=== PATIENT | male | born 1965 | race Hispanic/Latino ===

== ENCOUNTER 2019-08-03 07:42 | Emergency (ER) | payer OTHER, BC, SELFPAY ==
--- NOTE | ~2019-08-03 | CT_ITS ---
EXAMINATION: CT abdomen pelvis wo con EXAM DATE: 08/03/2019 08:59 INDICATION: Left flank pain, mid abdominal pain. TECHNIQUE: Spiral CT of the abdomen and pelvis was performed without contrast. Axial, coronal and sag ittal images were reviewed. The dose-length product (DLP) for this examination was 777.54 mGy-cm. T he exposure was tailored according to patient size (auto mA exposure control), and iterative reconstr uction (ASIR) was used as additional dose reduction technique. There is no prior study for compariso n. FINDINGS: There is no nephrolithiasis or hydronephrosis. The prostate is unremarkable. The bladder is unremarkable. The liver, spleen, adrenal glands and pancreas are unremarkable. Gallbladder is u nremarkable. No biliary obstruction. There is no retroperitoneal or pelvic lymphadenopathy. Small right inguinal fat-containing hernia. Small umbilical fat-containing hernia. The appendix is normal. The stomach and small bowel are unremarkable. Extensive colonic diverticulo sis. There is probable mild inflammation along the sigmoid colon, probably acute uncomplicated divert iculitis. No free intraperitoneal gas. The heart is normal in size. There are no pericardial or pleural effusions. The lung bases are unremarkable. There are no osteoblastic or osteolytic lesions identified. IMPRESSION: 1. Probable mild acute uncomplicated sigmoid diverticulitis. 2. No nephrolithiasis or hydronephrosis. 3. Small fat-containing hernias. Reviewed, dictated and finalized at location A.
[2019-08-03 07:50] VITALS: BP 147/101; PULSE 63; RESP 14; TEMP 36.7; O2SAT 98
--- NOTE | 2019-08-03 08:14 | ED.ABDPAIN ---
HPI - Abdominal Pain General Chief Complaint: Abdominal Pain Stated Complaint: back pain Time Seen by Provider: 08/03/19 08:15 Source: patient Mode of arrival: ambulatory Limitations: no limitations History of Present Illness HPI narrative: A 54 y/o male presents to the ED with c/o diffuse ABD pain and lower back pain. Pt states the ABD pain began on Tuesday (3 days ago) followed by the back pain on Tuesday (2 days ago). Pt took Tylenol last night with no relief. Pt rates his current pain as an 8/10 in severity. He denies N/V/D, a fever, constipation, urinary frequency, hematuria, and dysuria. Onset (ago): day(s) (3) Pain scale (0-10): 8 Relieving factors: nothing Related Data Home Medications Medication Instructions Recorded Confirmed metformin 500 mg tablet 500 mg PO DAILY 04/04/19 pravastatin 40 mg tablet 40 mg PO DAILY 04/04/19 Allergies Allergy/AdvReac Type Severity Reaction Status Date / Time No Known Allergies Allergy Verified 08/03/19 08:00 Review of Systems Review of Systems: All systems reviewed & are unremarkable except as noted in HPI and below Constitutional: Constitutional: Denies fever(s) Gastrointestinal: Gastrointestinal: Reports abdominal pain (diffuse), Denies constipation, Denies diarrhea, Denies nausea and Denies vomiting Genitourinary: Genitourinary: Denies hematuria, Denies dysuria and Denies urinary frequency Musculoskeletal: Musculoskeletal: Reports back pain (lower) [facility] Past Medical History Medical History Arm fracture Diabetes HLD (hyperlipidemia) Surgical History Surgical History History of tonsillectomy Family History Family History Other Diabetes mellitus Social History Social History Smoking status: Smoker, status unknown Alcohol intake: current Comments No PCP on file. Exam Const: General: healthy appearing, no acute distress and alert Orientation/consciousness: patient oriented x3 HENMT: Head: normal to inspection Neck: Neck: normal visual inspection and no lymphadenopathy Chest: Chest palpation & inspection: no tenderness Resp: Effort & Inspection: normal respiratory effort Auscultation: clear to auscultation bilaterally, no rales, no rhonchi and no wheezes Cardio: Jugular venous distension: no JVD Rate: regular rate Rhythm: regular rhythm Heart sounds: no murmurs GI: GI Palp: Yes Soft to palpation and Yes Tenderness to palpation present (GI) (LLQ) : General: Yes no CVA tenderness Skin: General skin exam: normal color Neuro: General: patient oriented x3 and moves all extremities Speech: normal speech Extrem: General: no edema Psych: Appearance: well kempt Affect: normal affect Course Vital Signs Vital signs: Vital Signs Temperature 36.7 C 08/03/19 07:50 Pulse Rate 63 08/03/19 07:50 Respiratory Rate 14 08/03/19 07:50 Blood Pressure 147/101 H 08/03/19 07:50 Pulse Oximetry 98 08/03/19 07:50 Temperature 36.7 C 08/03/19 07:50 Pulse Rate 63 08/03/19 07:50 Respiratory Rate 14 08/03/19 07:50 Blood Pressure 147/101 H 08/03/19 07:50 Pulse Oximetry 98 08/03/19 07:50 MDM - Abdominal Pain Differential Diagnosis Differential diagnosis: Likely calculus of kidney, constipation and diverticulitis Lab Data Result diagrams: 08/03/19 09:07 08/03/19 09:07 Labs: Lab Results 08/03/19 08/03/19 08/03/19 Range/Units 09:07 09:07 09:55 WBC 7.5 (4.5-10.0) K/mm3 RBC 5.41 (4.6-6.20) M/mm3 Hgb 15.7 (14.0-18.0) g/dL Hct 46.6 (42.0-52.0) % MCV 86.1 (80-100) fl MCH 29.0 (26-34) pg MCHC 33.7 (32-36) g/dl RDW 13.1 (11.5-14.5) % Plt Count 252 (150-375) k/mm3 MPV 9.8 (7.4-10.4) fl Immature Gran % (Auto) 0.4 (0-0.5) % Neut
[2019-08-03 09:14] LABS: Basophils Percent Auto 0.3 % (0.2-1.2); Eosinophils Absolute Auto 0.1 K/mm3 (0-0.3); Eosinophils Percent Auto 0.7 % (0-4.4); Hematocrit 46.6 % (42.0-52.0); Hemoglobin 15.7 g/dL (14.0-18.0); Immature Granulocyte Absolute 0.03 K/mm3 (0.00-0.031); Immature Granulocyte Percent A 0.4 % (0-0.5); Lymphocytes Absolute Auto 1.72 K/mm3 (0.9-3.2); Lymphocytes Percent Auto 23.1 % (18.3-44.2); Mean Corpuscular HGB Conc 33.7 g/dl (32-36); Mean Corpuscular Volume 86.1 fl (80-100); Mean Platelet Volume 9.8 fl (7.4-10.4); Monocytes Absolute Auto 0.8 K/mm3 (0.1-0.6); Monocytes Percent Auto 10.7 % (2.6-8.5); Neutrophils Absolute Auto 4.8 K/mm3 (1.3-6.7); Neutrophils Percent Auto 64.8 % (45.5-73.1); Platelet Count Result 252 k/mm3 (150-375); Red Blood Count 5.41 M/mm3 (4.6-6.20); Red Cell Distribution Width 13.1 % (11.5-14.5); White Blood Count 7.5 K/mm3 (4.5-10.0)
[2019-08-03 09:28] LABS: Alanine Aminotransferase 18 U/L (4-50); Albumin Level 3.9 g/dL (3.5-5.1); Alkaline Phosphatase 47 U/L (38-126); Aspartate Amino Transferase 20 U/L (17-59); Bilirubin,Total 0.5 mg/dL (0.2-1.3); Blood Urea Nitrogen 9 mg/dL (9-20); Calcium 8.4 mg/dL (8.4-10.2); Carbon Dioxide 26 mmol/L (22-30); Chloride 102 mmol/L (98-107); Estimated CRCL calculation 113 ml/min; Estimated Glomerular Filt Rate > 60; Glucose 127 mg/dL (75-110); Potassium 3.5 mmol/L (3.4-5.0); Sodium 133 mmol/L (137-145)
[2019-08-03 10:04] LABS: Add Urine Microscopic? NO; Appearance Urine Clear (Clear); Bilirubin Urine Negative (Negative); Blood Urine Negative (Negative); Color Urine Yellow (Yellow); Glucose Urine UA Negative (Negative); Ketones Urine Negative (Negative); Leukocyte Esterase Ur Negative LEU/UL (Negative); Nitrate Urine Negative (Negative); Protein Urine Negative (Negative); Specific Grav Ur 1.019 (1.001-1.035); Urobilinogen Urine Negative mg/dL (<2.0)
[2019-08-03] MEDS: metroNIDAZOLE 250 MG TABLET 500 MG PO (10:15)
[2019-08-03] MEDS: CIPROFLOXACIN 500 MG TAB PO (10:15)
[2019-08-03 11:15] VITALS: BP 141/90; PULSE 56; RESP 16; O2SAT 99
== END 2019-08-03 11:17 | disposition home or self-care (01) ==
PROVIDERS: Emergency Provider Emergency Medicine; PCP Family Medicine
DX: K57.32 Diverticulitis of large intestine without perforation or abscess without bleeding (principal); E11.9 Type 2 diabetes mellitus without complications; E78.5 Hyperlipidemia, unspecified; Z79.84 Long term (current) use of oral hypoglycemic drugs; K40.90 Unilateral inguinal hernia, without obstruction or gangrene, not specified as recurrent; K42.9 Umbilical hernia without obstruction or gangrene
CPT/HCPCS: 36415; 74176; 80053; 81003; 85025; 99284; A9270

== ENCOUNTER 2019-08-06 00:53 | Emergency (ER) | payer BC, SELFPAY ==
--- NOTE | ~2019-08-06 | CT_ITS ---
EXAMINATION: CT abdomen pelvis w con INDICATION: Left lower abdominal pain TECHNIQUE: Computed tomographic images of the abdomen and pelvis were obtained after the administrati on of 100 cc of Omnipaque 350 intravenous contrast. The dose-length product (DLP) was 776.09 mGy-cm. Automated exposure control and iterative reconstruction technique were employed. COMPARISON: 08/03/2019 FINDINGS: Minimal dependent atelectasis is present in the lung bases. The heart size is normal. The l iver, spleen, pancreas, gallbladder, and adrenal glands are normal. The kidneys are unremarkable. No pathologically enlarged abdominal or pelvic lymph nodes are identified. There is no free intraperiton eal gas or evidence of bowel obstruction. Colonic diverticulosis is again noted. Again seen is subtle fat stranding near the sigmoid colon which is stable. There is a fat-containing right inguinal herni a. The appendix is normal. A moderate volume of colonic stool is present. There is mild lumbar spond ylosis. A tiny fat-containing umbilical hernia is noted. IMPRESSION: 1. Stable findings suggestive of mild, uncomplicated sigmoid diverticulitis. Reviewed, dictated and finalized at location B.
[2019-08-06 00:58] VITALS: BP 150/111; PULSE 75; RESP 16; TEMP 36.6; O2SAT 100
--- NOTE | 2019-08-06 01:10 | ED.ABDPAIN ---
HPI - Abdominal Pain General Chief Complaint: Abdominal Pain Stated Complaint: flank pain Time Seen by Provider: 08/06/19 01:07 Source: patient and RN notes reviewed Mode of arrival: other Limitations: no limitations History of Present Illness HPI narrative: Pt is a 54 y/o male who presents to the ED with c/o intermittent flank pain that began Tuesday (07/31/19) night. Pt denies any aggravating factors. He also denies taking any pain medication for his sx. Pt was dx with diverticulitis and was prescribed Cipro and Flagyl. He has presented to ER because he continues to have severe pain while on antibiotics. 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 Pt also reports difficulty sleeping, but denies N/V/D, urinary hesitancy, urinary retention, numbness, tingling, and any recent back injury. MD elicited complaint: flank pain Onset (ago): day(s) (6) Pain Consistency: intermittent Location: L flank Exacerbating factors: nothing Relieving factors: nothing Associated symptoms: other (difficulty sleeping) Related Data Home Medications Medication Instructions Recorded Confirmed metformin 500 mg tablet 500 mg PO DAILY 04/04/19 pravastatin 40 mg tablet 40 mg PO DAILY 04/04/19 Allergies Allergy/AdvReac Type Severity Reaction Status Date / Time No Known Allergies Allergy Verified 08/03/19 08:00 Review of Systems Review of Systems: All systems reviewed & are unremarkable except as noted in HPI and below Constitutional: Constitutional: Reports difficulty sleeping Gastrointestinal: Gastrointestinal: Denies diarrhea, Denies nausea and Denies vomiting Genitourinary: Genitourinary: Reports flank pain (left), Denies urinary hesitancy and Denies other (urinary retention) Neurologic: Denies numbness and Denies tingling PMFSH Social History Social History (Updated 08/06/19 @ 01:53 by Lorrie Gomes) Smoking packs per day: 0.25 Smoking cigarettes per day: 5.0 Smoking status: Current every day smoker Tobacco type: cigarettes Alcohol intake: current Exam Narrative: Exam Narrative: GENERAL: Well-appearing, well-nourished, and in no acute distress. HEAD: Normocephalic, atraumatic EYES: PERRLA and EOMI, conjunctiva clear without discharge THROAT:Mucous membranes moist, NECK: Supple, without lymphadenopathy or mass RESPIRATORY: No respiratory distress, Airway patent, Respirations non-labored, Clear to auscultation without rales, rhonchi or wheeze HEART: Regular rate and rhythm. No murmur heard. Normal peripheral pulses. ABDOMEN: Soft, LLQ tenderness, nondistended, normal active bowel sounds. No masses. No rebound or guarding, No organomegaly. EXTREMITIES: No edema, normal strength with full range of motion. SKIN: Warm, dry, normal color without rash NEURO: Alert and oriented x3. CN 2-12 grossly intact. No focal deficits. PSYCH: Normal mood and affect. Course Reevaluation(s) Reevaluation #1: Patient states his pain has resolved. I Discussed that he will need to continue taking antibiotics and he will need to take tylenol, ibuprofen for pain. I also discussed that he will need to take stool softeners. Date: 08/06/19 Time: 03:00 Vital Signs Vital signs: Vital Signs Temperature 97.9 F 08/06/19 00:58 Pulse Rate 75 08/06/19 00:58 Respiratory Rate 16 08/06/19 00:58 Blood Pressure 150/111 H 08/06/19 00:58 Pulse Oximetry 100 08/06/19 00:58 Temperature 97.9 F 08/06/19 00:58 Pulse Rate 57 L 08/06/19 02:18 Respiratory Rate 16 08/06/19 02:18 Blood Pressure 127/87 08/06/19 02:18 Pulse Oximetry 97 08/06/19 02:18 MDM - Abdominal Pain Lab Data Attestation: I reviewed the patient's lab results. Result diagrams: 08/06/19 01:40 08/06/19 01:40 Labs: Lab Results 08/06/19 08/06/19 08/06/19 Range/Units 01:40 01:40 01:40 WBC 9.7 (4.5-10.0) K/mm3 RBC 5.53 (4.6-6.20) M/mm3 Hgb 15.9 (14.0-18.0) g/dL Hct 48.0 (42.0-52.0) % MCV 86.8 (
[2019-08-06] MEDS: KETOROLAC 30 MG/ML VIAL (*BKC) IV PUSH (01:40)
[2019-08-06 01:50] LABS: Basophils Percent Auto 0.3 % (0.2-1.2); Eosinophils Absolute Auto 0.1 K/mm3 (0-0.3); Eosinophils Percent Auto 0.7 % (0-4.4); Hemoglobin 15.9 g/dL (14.0-18.0); Immature Granulocyte Absolute 0.04 K/mm3 (0.00-0.031); Immature Granulocyte Percent A 0.4 % (0-0.5); Lymphocytes Absolute Auto 1.92 K/mm3 (0.9-3.2); Lymphocytes Percent Auto 19.8 % (18.3-44.2); Mean Corpuscular HGB Conc 33.1 g/dl (32-36); Mean Corpuscular Hemoglobin 28.8 pg (26-34); Mean Corpuscular Volume 86.8 fl (80-100); Mean Platelet Volume 10.3 fl (7.4-10.4); Monocytes Percent Auto 10.2 % (2.6-8.5); Neutrophils Absolute Auto 6.6 K/mm3 (1.3-6.7); Neutrophils Percent Auto 68.6 % (45.5-73.1); Platelet Count Result 261 k/mm3 (150-375); Red Blood Count 5.53 M/mm3 (4.6-6.20); Red Cell Distribution Width 12.8 % (11.5-14.5); White Blood Count 9.7 K/mm3 (4.5-10.0)
[2019-08-06 01:51] LABS: Add Urine Microscopic? NO; Appearance Urine Clear (Clear); Bilirubin Urine Negative (Negative); Blood Urine Negative (Negative); Color Urine Yellow (Yellow); Glucose Urine UA Negative (Negative); Ketones Urine Negative (Negative); Leukocyte Esterase Ur Negative LEU/UL (Negative); Nitrate Urine Negative (Negative); Protein Urine Negative (Negative); Specific Grav Ur 1.015 (1.001-1.035); Urobilinogen Urine Negative mg/dL (<2.0)
[2019-08-06 02:02] LABS: Alanine Aminotransferase 31 U/L (4-50); Albumin Level 4.1 g/dL (3.5-5.1); Alkaline Phosphatase 45 U/L (38-126); Aspartate Amino Transferase 35 U/L (17-59); Bilirubin,Total 0.1 mg/dL (0.2-1.3); Blood Urea Nitrogen 15 mg/dL (9-20); Calcium 8.9 mg/dL (8.4-10.2); Carbon Dioxide 31 mmol/L (22-30); Chloride 100 mmol/L (98-107); Estimated Glomerular Filt Rate > 60; Glucose 146 mg/dL (75-110); Lipase 40 U/L (23-300); Potassium 3.5 mmol/L (3.4-5.0); Sodium 134 mmol/L (137-145)
[2019-08-06 02:18] VITALS: BP 127/87; PULSE 57; RESP 16; O2SAT 97
--- NOTE | 2019-08-06 02:39 | PC.NURSE ---
Patient returned from CT.
== END 2019-08-06 03:19 | disposition home or self-care (01) ==
PROVIDERS: Emergency Provider General Practice; PCP Family Medicine
DX: K57.32 Diverticulitis of large intestine without perforation or abscess without bleeding (principal); F17.210 Nicotine dependence, cigarettes, uncomplicated
CPT/HCPCS: 36415; 74177; 80053; 81003; 83690; 85025; 96374; 99284; J1885; Q9967

== ENCOUNTER 2021-06-28 09:04 | Emergency (ER) | payer OTHER, SELFPAY ==
[2021-06-28] VITALS (34 sets, daily range): BP systolic 129–168; BP diastolic 64–125; PULSE 78–104; RESP 15–18; TEMP 36.9; O2SAT 95–99
--- NOTE | ~2021-06-28 | CT_ITS ---
EXAMINATION: CT abdomen pelvis w con DATE: 06/28/2021 12:03 INDICATION: Hepatic abscess. TECHNIQUE: Computed tomography (CT) of the abdomen and pelvis was performed with 100 mL Omnipaque 350 intravenous contrast. Automated exposure control and iterative reconstruction technique were employe d. The dose-length product was 981.99 mGy-cm. COMPARISON: CT abdomen and pelvis 08/06/2019 FINDINGS: The visualized portions of the lung bases demonstrate mild atelectasis. No pleural effusion . The heart size is normal. No pericardial effusion. At the right posterior margin of the liver , the re is a 6.5 x 2.8 x 3.7 cm low-attenuation mass with central area near fluid attenuation measuring 2. 8 x 0.9 x 1.0 cm. The gallbladder is decompressed. The spleen, pancreas, adrenal glands, and kidneys are normal. There is a right inguinal hernia containing fat. The prostate is mildly enlarged. There i s diffuse bladder wall thickening, new from 08/06/19, consistent with cystitis. The bladder is not wel l distended. There is diverticulosis of the colon without evidence of diverticulitis. The appendix i s normal. There is an old catheter tract in the right abdomen. There is mild periportal lymphadenopat hy, likely reactive. There is no free intraperitoneal fluid. There is moderate thoracic spondylosis a nd mild lumbar spondylosis. There is mild chronic anterior wedging of multiple thoracic vertebral bod ies. IMPRESSION: 1. 6.5 x 2.8 x 3.7 cm mass in right posterior liver with central 2.8 x 0.9 x 1.0 cm fluid collection, consistent with phlegmon and abscess. 2. Cystitis. 3. Right inguinal hernia containing fat. 4. Mild periportal lymphadenopathy, likely reactive. Reviewed, dictated and finalized at location A. OGGER IMPRESSION: 1. 6.5 x 2.8 x 3.7 cm mass in right posterior liver with central 2.8 x 0.9 x 1. 0 cm fluid collection, consistent with phlegmon and abscess. 2. Cystitis. 3. Right inguinal hernia containing fat. 4. Mild periportal lymphadenopathy, likely reactive.
--- NOTE | 2021-06-28 11:23 | ED.GENADULT ---
HPI - General Adult General Chief complaint: Urogenital-Male <Edis Underwood SIMRAN Stevenson BC - Last Filed: 06/28/21 21:49> Stated complaint: burning with urination <Edis Underwood SIMRAN Stevenson BC - Last Filed: 06/28/21 21:49> Time Seen by Provider: 06/28/21 10:05 <Eids SIMRAN Velasquez BC - Last Filed: 06/28/21 21:49> Source: patient and family <Edis Underwood SIMRAN Stevenson BC - Last Filed: 06/28/21 21:49> Mode of arrival: ambulatory <Edis Underwood SIMRAN Stevenson BC - Last Filed: 06/28/21 21:49> Limitations: no limitations <Edis Underwood SIMRAN Stevenson BC - Last Filed: 06/28/21 21:49> History of Present Illness HPI narrative: Patient presents for evaluation of dysuria. Symptoms started last Tuesday. Reports urinary urgency, frequency, hesitancy, decreased urinary output. He has seven episode per night nocturia, which sounds as though his chronic. He states in April he was vacationing in [place] and went to an emergency department with complaints of abdominal pain. He was found to have a hepatic abscess. He had laparoscopic surgery for drainage of abscess, drain placed, and was treated with flagyl and cipro. He states he came back to the [place] and had this drained again through [facility] and was placed back on flagyl and cipro after abscess was drained in interventional radiology. Last week when he was experiencing urinary symptoms he thought it was related to his abx so he stopped taking both of them. He had two days of medication left to completed. Yesterday morning he developed right lower back pain with BLE pain. He described his pain as the sensation that he has been running too long . He denies any fever, chills, nausea, vomiting, hematuria. He states he is not sexually active. He is diabetic but does not check his BS at home. <Edis Underwood SIMRAN Stevenson BC - Last Filed: 06/28/21 21:49> Related Data Home medications: Home Medications Medication Instructions Recorded Confirmed ciprofloxacin HCl 100 mg tablet 500 mg PO BID tablet 06/02/21 06/28/21 metformin 1,000 mg tablet,extended 1,000 mg PO DAILY 06/02/21 06/28/21 release 24hr metronidazole 500 mg tablet 500 mg PO TID 06/02/21 06/28/21 <SIMRAN March BC - Last Filed: 06/28/21 21:49> Allergies/adverse reactions: Allergies Allergy/AdvReac Type Severity Reaction Status Date / Time No Known Allergies Allergy Verified 06/28/21 09:23 <SIMRAN March BC - Last Filed: 06/28/21 21:49> Review of Systems Review of Systems: CONSTITUTIONAL: Denies fever, chills, or sweats. EYES: Denies visual changes, redness, or discharge. ENT: Denies rhinorrhea, congestion, sore throat, or otalgia. CARDIOVASCULAR: Denies chest pain, palpitations, or edema. RESPIRATORY: Denies cough or dyspnea. GASTROINTESTINAL: Reports abdominal pain. Denies nausea and vomiting. GENITOURINARY: Reports dysuria, hesitancy, urgency, decreased urinary output and nocturia SKIN: Denies rash or itching. MUSCULOSKELETAL: Reports right sided low back pain. Reports pain in BLE NEUROLOGIC: Denies headache, numbness, dizziness, or weakness. PSYCHIATRIC: Denies anxiety or depression. <SIMRAN March BC - Last Filed: 06/28/21 21:49> [facility] Past Medical History Medical History: Medical History (Updated 06/28/21 @ 21:46 by SIMRAN March BC) Arm fracture BMI 31.0-31.9,adult COVID-19 Diabetes Hepatic abscess History of drainage of abscess History of drainage of abscess HLD (hyperlipidemia) <SIMRAN March BC - Last Filed: 06/28/21 21:49> Surgical History Surgical History: Surgical History History of tonsillectomy <SIMRAN March BC - Last Filed: 06/28/21 21:49> Family History Family History: Family History Father No problems noted. Mother
[2021-06-28 11:52] LABS: Basophils Absolute Auto 0.1 K/mm3 (0.0-0.1); Basophils Percent Auto 0.3 % (0.2-1.2); Eosinophils Absolute Auto 0.1 K/mm3 (0-0.3); Eosinophils Percent Auto 0.4 % (0-4.4); Hematocrit 45.2 % (42.0-52.0); Hemoglobin 15.3 g/dL (14.0-18.0); Immature Granulocyte Absolute 0.09 K/mm3 (0.00-0.031); Immature Granulocyte Percent A 0.5 % (0-0.5); Lymphocytes Absolute Auto 1.65 K/mm3 (0.9-3.2); Mean Corpuscular HGB Conc 33.8 g/dl (32-36); Mean Corpuscular Hemoglobin 29.1 pg (26-34); Mean Corpuscular Volume 86.1 fl (80-100); Mean Platelet Volume 9.1 fl (7.4-10.4); Monocytes Absolute Auto 1.5 K/mm3 (0.1-0.6); Monocytes Percent Auto 8.8 % (2.6-8.5); Neutrophils Absolute Auto 13.1 K/mm3 (1.3-6.7); Platelet Count Result 326 k/mm3 (150-375); Red Blood Count 5.25 M/mm3 (4.6-6.20); Red Cell Distribution Width 13.4 % (11.5-14.5); White Blood Count 16.4 K/mm3 (4.5-10.0)
[2021-06-28 12:00] LABS: Creatine Kinase 28 U/L (55-170)
[2021-06-28 12:02] LABS: Alanine Aminotransferase 94 U/L (4-50); Albumin Level 4.1 g/dL (3.5-5.1); Alkaline Phosphatase 80 U/L (38-126); Anion Gap 7 mmol/L (8-16); Aspartate Amino Transferase 73 U/L (17-59); Bilirubin,Total 0.7 mg/dL (0.2-1.3); Blood Urea Nitrogen 11 mg/dL (9-20); Calcium 9.4 mg/dL (8.4-10.2); Carbon Dioxide 28 mmol/L (22-30); Chloride 101 mmol/L (98-107); Estimated CRCL calculation 111 ml/min; Estimated Glomerular Filt Rate > 60; Glucose 208 mg/dL (65-110); Lipase 49 U/L (23-300); Potassium 3.9 mmol/L (3.4-5.0); Sodium 136 mmol/L (137-145)
[2021-06-28 12:03] LABS: Estimated CRCL calculation 128 ml/min; Estimated Glomerular Filt Rate > 60
[2021-06-28 12:07] LABS: Add Urine Microscopic? YES; Appearance Urine Cloudy (Clear); Bilirubin Urine Negative (Negative); Blood Urine 3+ (Negative); Color Urine Yellow (Yellow); Glucose Urine UA Negative (Negative); Ketones Urine Negative (Negative); Leukocyte Esterase Ur 1+ LEU/UL (Negative); Nitrate Urine Negative (Negative); Protein Urine 1+ mg/dL (Negative); Specific Grav Ur 1.025 (1.001-1.035); Urobilinogen Urine 0.2 mg/dL (<2.0); pH Urine 6.5 (5.0-9.0)
[2021-06-28 12:11] LABS: Prothrombin Time 12.7 Seconds (11.1-14.7)
[2021-06-28 12:13] LABS: Troponin I < 0.012 ng/mL (0.000-0.034)
[2021-06-28 12:17] LABS: Mucus Urine Rare /lpf; RBC Urine >75 /hpf (0-2); Squamous Epithelial Cell Urine Occasional /hpf (Few); WBC Clumps Urine Present /HPF; WBC Urine >75 /hpf
[2021-06-28] MEDS: SODIUM CHLORIDE 0.9% IV 1,000 ML 999 ML IV CONT (12:26)
[2021-06-28 15:11] LABS: Troponin I < 0.012 ng/mL (0.000-0.034)
[2021-06-28] MEDS: metroNIDAZOLE 500 MG/ISO 100ML 500 MG/100 ML BAG 100 MG IVPB (16:05)
[2021-06-28] MEDS: CIPROFLOXACIN 400 MG/D5W 200ML 200 ML 200 MG IVPB (17:24)
--- NOTE | 2021-06-28 18:18 | PC.NURSE ---
[facility] requesting covid swab prior to bed placement
[2021-06-28 19:18] LABS: SARS-CoV-2 RNA PCR Positive
--- NOTE | 2021-06-28 19:38 | PC.NURSE ---
Pt reports to MARIEL Burgos that he tested POSITIVE for Covid 4 weeks ago, but did not alert any staff member when asked prior to swab collected today.
--- NOTE | 2021-06-28 22:30 | PC.NURSE ---
Tabithaduarte GonzalezCarrera is patient's daughter and her phone number [phone].
--- NOTE | 2021-06-28 23:47 | PC.NURSE ---
Assumed care of pt, pt is resting on stretcher w/ lights dimmed - alert to verbal stimuli.
[2021-06-29] VITALS (36 sets, daily range): BP systolic 114–161; BP diastolic 69–119; PULSE 81–156; RESP 14–28; TEMP 36.6–38.1; O2SAT 93–97
--- NOTE | 2021-06-29 02:34 | PC.NURSE ---
This RN updated [facility] transfer center with most recent vitals. Still awaiting bed assignment.
[2021-06-29] MEDS: SODIUM CHLORIDE 0.9% IV 1,000 ML 150 ML IV CONT (02:49)
[2021-06-29] MEDS: ACETAMINOPHEN 500 MG TABLET 1000 MG PO (02:49)
[2021-06-29] MEDS: metroNIDAZOLE 500 MG/ISO 100ML 500 MG/100 ML BAG 100 MG IVPB (04:40)
[2021-06-29] MEDS: CIPROFLOXACIN 400 MG/D5W 200ML 200 ML 200 MG IVPB (05:27)
--- NOTE | 2021-06-29 07:27 | PC.NURSE ---
young has arrived
--- NOTE | 2021-06-29 07:46 | PC.NURSE ---
Cipro and normal saline are still infusing at time of departure.
== END 2021-06-29 07:40 | disposition short-term general hospital (02) ==
PROVIDERS: Nurse Practitioner; Emergency Provider Emergency Medicine; PCP Family Medicine
DX: K75.0 Abscess of liver (principal); N30.90 Cystitis, unspecified without hematuria; U07.1 COVID-19; E11.9 Type 2 diabetes mellitus without complications; E78.5 Hyperlipidemia, unspecified; Z79.84 Long term (current) use of oral hypoglycemic drugs; Z86.16 Personal history of COVID-19; Z87.891 Personal history of nicotine dependence
CPT/HCPCS: 36415; 74177; 80053; 81001; 82550; 83605; 83690; 84484; 85025; 85610; 85730; 87040; 87077; 87086; 87088; 87186; 87491; 87591; 96361; 96365; 96366; 96367; 99285; A9270; C9803; J0744; J7030; Q9967; U0003; U0005

== ENCOUNTER 2022-05-25 16:56 | Outpatient (CLI) | payer OTHER, SELFPAY ==
--- NOTE | ~2022-05-25 | US_ITS ---
EXAMINATION: US abdomen complete DATE: 05/25/2022 19:17 INDICATION: Right lower quadrant abdominal pain. TECHNIQUE: Multiple grayscale and Doppler ultrasound images of the abdomen were obtained. COMPARISON: CT abdomen and pelvis 06/28/2021, 08/06/19 FINDINGS: The pancreas is obscured by bowel gas. There is a 10.5 x 4.0 cm hyperechoic mass at the pos terolateral margin of right hepatic lobe. No liver surface nodularity. There is normal flow in main p ortal vein. The gallbladder is contracted. No gallstones. There was no sonographic Shannon sign. The c ommon duct is normal and measures 4 mm. The kidneys are normal in size. The spleen is normal in size. Inferior vena cava is normal. The aorta is normal in caliber. IMPRESSION: 1. 10.5 x 4.0 cm hyperechoic mass at the posterolateral margin of right hepatic lobe, which may be in fection/scarring. Malignancy is less likely. Abdomen and pelvis CT without and with contrast is recom mended. Reviewed, dictated and finalized at location A. SHING RANGE SUPERVISOR IMPRESSION: 1. 10.5 x 4.0 cm hyperechoic mass at the posterolateral margin of right hepatic lobe, which may be infection/scarring. Malignancy is less likely. Abdomen and pelvis CT without and with contrast is recommended.
== END 2022-05-25 16:57 | disposition home or self-care (01) ==
PROVIDERS: PCP Family Medicine; Visit Provider Physician Assistant Medical
DX: R10.31 Right lower quadrant pain (principal)
CPT/HCPCS: 76700

== ENCOUNTER 2022-06-16 13:51 | Outpatient (CLI) | payer OTHER, SELFPAY ==
--- NOTE | ~2022-06-16 | CT_ITS ---
EXAMINATION: CT abdomen pelvis wo/w con DATE: 06/16/2022 14:39 INDICATION: Liver mass on ultrasound TECHNIQUE: Computed tomography (CT) of the abdomen and pelvis was performed without and with 100 mL O mnipaque-350 intravenous contrast. Automated exposure control and iterative reconstruction technique were employed. The dose-length product was 1383.21 mGy-cm. COMPARISON ultrasound dated 05/25/[address] studies dated 06/28/2021 and 08/06/2019: None FINDINGS: Minimal bibasilar atelectasis. Heart size is normal. No pericardial or pleural effusion. 2.1 x 1.7 x 1.7 cm heterogeneously hypoenhancing lesion which mildly bulges the capsule along the posterior savanah n of the right hepatic lobe which is at the site of a prior 6.5 x 2.8 x 3.7 cm low-attenuation mass w ith central near fluid attenuation. Prior provided clinical history was for hepatic abscess which wou ld be consistent with the prior CT images and subsequent interval involution and residual scarring. N o other hepatic lesions identified. The larger and more elongated hyperechoic mass identified on prio r ultrasound appears to correlate with the retroperitoneal fat situated between the right hepatic lob e and the upper pole of the right kidney. No interval change in a subtle 4 mm mural based density in the fundus of the gallbladder which could represent either a small polyp or focal adenomyomatosis. Pa ncreas, spleen, bilateral adrenal glands and kidneys are normal. The right and descending colon predo minance diverticulosis without adjacent inflammatory change to suggest diverticulitis. Small bowel an d appendix are normal. Mildly enlarged prostate bulges along the inferior wall of the bladder with sm all region of surrounding enhancement which appears unchanged since 08/06/2019. Moderate-sized fat-con taining right inguinal hernia. No free intraperitoneal gas or fluid. No pathologically enlarged abdom inal or pelvic lymphadenopathy. Mild to moderate thoracolumbar spondylosis with chronic mild anterior wedging of a few lower thoracic vertebral bodies. IMPRESSION: 1. The hyperechoic mass of concern on prior ultrasound appears to represent an artifact of retroperit lockett fat saturated between the liver and the upper pole the right kidney. 2. Decrease in size of a now 2.1 x 1.7 x 1.7 cm hypoenhancing region along the posterior margin of th e right hepatic lobe consistent with involutional residual scarring of a prior hepatic abscess. 3. Stable appearance of a subtle 4 mm polyp versus focal adenoma stenosis at the fundus of the gallbl adder. 4. Moderate-sized fat-containing right inguinal hernia. 5. Prostatomegaly. Reviewed, dictated and finalized at location A. ELLA CUTTER IMPRESSION: 1. The hyperechoic mass of concern on prior ultrasound appears to represent an artifact of retroperitoneal fat saturated between the liver and the upper pole the right kidney. 2. Decrease in size of a now 2.1 x 1.7 x 1.7 cm hypoenhancing region along the posterior margin of the right hepatic lobe consistent with involutional residua l scarring of a prior hepatic abscess. 3. Stable appearance of a subtle 4 mm polyp versus focal adenoma stenosis at th e fundus of the gallbladder. 4. Moderate-sized fat-containing right inguinal hernia. 5. Prostatomegaly.
[2022-06-16 14:32] LABS: Estimated Glomerular Filt Rate > 60
== END 2022-06-16 13:52 | disposition home or self-care (01) ==
PROVIDERS: PCP Family Medicine; Visit Provider Physician Assistant Medical
DX: K76.9 Liver disease, unspecified (principal); K40.90 Unilateral inguinal hernia, without obstruction or gangrene, not specified as recurrent; N40.0 Benign prostatic hyperplasia without lower urinary tract symptoms
CPT/HCPCS: 74178; Q9967

== ENCOUNTER 2022-06-25 01:25 | Day surgery (SDC) | payer OTHER, SELFPAY ==
[2022-06-11 13:01] VITALS: BMI 28.8
[2022-06-25 06:14] VITALS: BMI 29.0
[2022-06-25] MEDS: LACTATED RINGERS 1,000 ML 150 ML IV CONT (06:27)
[2022-06-25 06:28] LABS: Glucose Point of Care 149 mg/dl (65-105)
--- NOTE | 2022-06-25 07:22 | WPDANESEPPF ---
Anes - Initial Pre Proc Eval Procedure: Operation Date: 06/25/22 07:30 Proposed Procedures p Screening Colonoscopy - Juma Shanks MD Date/Time: 06/25/22 07:22 Surgeon: Juma Shanks MD Pre Op Diagnosis: neoplasm screening Patient Data Age: 56 Gender: M Height: 1.73 m Weight: 86.5 kg Allergies Allergy/AdvReac Type Severity Reaction Status Date / Time No Known Allergies Allergy Verified 06/25/22 06:13 Home Medications Medication Instructions Recorded Confirmed Type fluticasone propionate 50 1 - 2 spray intranasal BID #16 mL 06/21/22 06/25/22 Rx mcg/actuation nasal spray,suspension (Flonase Allergy Relief) atorvastatin 10 mg tablet 10 mg PO .QD #90 tabs 06/24/22 06/25/22 Rx glimepiride 4 mg tablet 4 mg PO QAM #90 tabs 06/24/22 06/25/22 Rx metformin 850 mg tablet 850 mg PO BID #180 tabs 06/24/22 06/25/22 Rx Laboratory Tests 06/25/22 06:25 POC Capillary Glucose 149 mg/dl H mg/dl (65-105) Patient hx anesthesia problems: none Family hx anesthesia problems: none Results Review: All pre-operative results and documents have been reviewed as part of the pre-operative evaluation. [facility] Past Medical History Medical History Arm fracture BMI 29.0-29.9,adult COVID-19 Diabetes Hepatic abscess History of drainage of abscess History of drainage of abscess HLD (hyperlipidemia) Liver cyst Overweight with body mass index (BMI) of 28 to 28.9 in adult (Unknown) RLQ abdominal pain Surgical History Surgical History History of tonsillectomy Family History Family History Father No problems noted. Mother No problems noted. Sibling No problems noted. Other Diabetes mellitus Social History Social History Smoking packs per day: 0.5 Smoking cigarettes per day: 10.0 Years smoked: 20 Smoking pack-years: 10.00 Smoking status: Current every day smoker Tobacco type: cigarettes Second hand tobacco smoke exposure: No Alcohol intake: current Drinks per week: 6 Substance use: never Substance use type: does not use Lack of Transportation: YES Lack of Food: Sometimes True Current Housing: I Have Housing Concerned About Future Housing: YES Difficulty Paying Gas/Electric Bills: YES Difficulty Paying for Meds: YES Currently Unemployed: YES Education: Trade/Vocational Certificate Difficulty w/ Childcare or Family Care: No Living arrangements: with family Occupation/Education: unemployed Gender identity (if verbalized by the patient): Male Sexual Orientation (if Verbalized by the Patient): Straight or Heterosexual Spiritual care concerns: No Anes - Eval Final PreProcedure Day of Procedure 06/25/22 07:22 Patient weight: overweight Heart: regular rate and rhythm Lungs: decreased breath sounds Airway: Mallampati scale class II Neurological: alert and oriented Last oral intake: >/= 8 hours ASA classification: III Emergent: no Anesthetic plan: proceed Anesthesia type and monitoring: general GIVS and standard monitoring Results Review: All pre-operative results and documents have been reviewed as part of the pre-operative evaluation. Informed Consent: The patient's anesthetic plan and its attendant risks and benefits were discussed with the patient/family/POA. Questions were solicited and answers provided to the satisfaction of the patient/family/POA.
--- NOTE | 2022-06-25 07:27 | PM.HPGS ---
History of Present Illness History of Present Illness Consent: Risks, benefits, and alternatives have been discussed and questions answered. Patient agrees to proceed with procedure. Chief complaint: neoplasm screening Narrative: Theodore Newell is a 56 year old male here for first screening colonoscopy Review of Systems Constitutional: Constitutional: Denies headache(s) and Denies weakness Eyes: Eyes: Denies blurry vision ENT: Reports Normal hearing present, Denies headache(s) and Denies neck pain Cardiovascular: Cardiovascular: Denies chest pain and Denies dyspnea Respiratory: Respiratory: Denies dyspnea Gastrointestinal: Gastrointestinal: Reports no additional gastrointestinal complaints Genitourinary: Genitourinary: Denies dysuria Musculoskeletal: Musculoskeletal: Denies neck pain Integumentary/Breasts: Skin/Breast: Denies dry skin Neurologic: Reports Normal hearing present, Denies headache(s) and Denies weakness Psychiatric: Psychiatric: Denies anxiety Endocrine: Endocrine: Denies change in body appearance Hematologic/Lymphatic: Hematologic/Lymphatic: Denies easy bleeding Allergic/Immunologic: Allergic/Immunologic: Denies urticaria PMFSH Past Medical History Medical History (Updated 06/25/22 @ 07:28 by Juma Shanks MD) Arm fracture BMI 29.0-29.9,adult Colon cancer screening COVID-19 Diabetes Hepatic abscess History of drainage of abscess History of drainage of abscess HLD (hyperlipidemia) Liver cyst Overweight with body mass index (BMI) of 28 to 28.9 in adult (Unknown) RLQ abdominal pain Surgical History Surgical History History of tonsillectomy Family History Family History Father No problems noted. Mother No problems noted. Sibling No problems noted. Other Diabetes mellitus Social History Social History Smoking packs per day: 0.5 Smoking cigarettes per day: 10.0 Years smoked: 20 Smoking pack-years: 10.00 Smoking status: Current every day smoker Tobacco type: cigarettes Second hand tobacco smoke exposure: No Alcohol intake: current Drinks per week: 6 Substance use: never Substance use type: does not use Lack of Transportation: YES Lack of Food: Sometimes True Current Housing: I Have Housing Concerned About Future Housing: YES Difficulty Paying Gas/Electric Bills: YES Difficulty Paying for Meds: YES Currently Unemployed: YES Education: Trade/Vocational Certificate Difficulty w/ Childcare or Family Care: No Living arrangements: with family Occupation/Education: unemployed Gender identity (if verbalized by the patient): Male Sexual Orientation (if Verbalized by the Patient): Straight or Heterosexual Spiritual care concerns: No Meds Home Medications and Allergies Home Medications Medication Instructions Recorded Confirmed Type fluticasone propionate 50 1 - 2 spray intranasal BID #16 mL 06/21/22 06/25/22 Rx mcg/actuation nasal spray,suspension (Flonase Allergy Relief) atorvastatin 10 mg tablet 10 mg PO .QD #90 tabs 06/24/22 06/25/22 Rx glimepiride 4 mg tablet 4 mg PO QAM #90 tabs 06/24/22 06/25/22 Rx metformin 850 mg tablet 850 mg PO BID #180 tabs 06/24/22 06/25/22 Rx Allergies Allergy/AdvReac Type Severity Reaction Status Date / Time No Known Allergies Allergy Verified 06/25/22 06:13 Exam Const: General: comfortable and no acute distress HENMT: Face/Nose/Sinus: Normal nares present Eyes: General: appearance normal, both eyes and all related structures Neck: Neck: no JVD Resp: Auscultation: clear to auscultation bilaterally Cardio: Rate: regular rate Rhythm: regular rhythm GI: Inspection: non-distended GI Palp: Yes Soft to palpation Skin: Ge
[2022-06-25 07:45] VITALS: BP 102/68; PULSE 62; RESP 21; O2SAT 98
[2022-06-25 07:55] VITALS: BP 108/72; PULSE 53; RESP 15; O2SAT 99
[2022-06-25 08:05] VITALS: BP 124/83; PULSE 65; RESP 14; O2SAT 99
== END 2022-06-25 08:20 | disposition home or self-care (01) ==
PROVIDERS: PCP Family Medicine; Visit Provider Internal Medicine Gastroenterology
PROC: 0DJD8ZZ Inspection of Lower Intestinal Tract, Via Natural or Artificial Opening Endoscopic (ICD-10-PCS; CPT 45378; principal; 2022-06-25 07:30)
DX: Z12.11 Encounter for screening for malignant neoplasm of colon (principal); K57.30 Diverticulosis of large intestine without perforation or abscess without bleeding; K63.5 Polyp of colon; K64.8 Other hemorrhoids; E11.9 Type 2 diabetes mellitus without complications; E78.5 Hyperlipidemia, unspecified; F17.210 Nicotine dependence, cigarettes, uncomplicated; Z79.84 Long term (current) use of oral hypoglycemic drugs
CPT/HCPCS: 45385; 82948; 88305; J2704; J7120

== ENCOUNTER 2022-07-22 14:10 | Outpatient (CLI) | payer OTHER, SELFPAY ==
--- NOTE | 2022-07-22 15:10 | ECG_ITS ---
Measurements Intervals [place] Rate: 59 P: 19 KS: 164 QRS: 15 QRSD: 104 T: 43 QT: 410 QTc: 408 Interpretive Statements SINUS BRADYCARDIA DELAYED PRECORDIAL R/S TRANSITION MINIMAL Q WAVES- INFERIOR LEADS NONSPECIFIC T-WAVE ABNORMALITY- INF/HIGH LAT LEADS BASELINE ARTIFACT- I, III, AVR, AVL, V6 BORDERLINE ECG NO PREVIOUS ECG AVAILABLE FOR COMPARISON Electronically Signed On 07-22-2022 19:07:26 [employer] by Matthew Flores D.O.
[2022-07-22 15:36] LABS: Anion Gap 6 mmol/L (8-16); Blood Urea Nitrogen 10 mg/dL (9-20); Calcium 8.8 mg/dL (8.4-10.2); Carbon Dioxide 28 mmol/L (22-30); Chloride 104 mmol/L (98-107); Estimated Glomerular Filt Rate > 60; Glucose 74 mg/dL (65-110); Potassium 3.4 mmol/L (3.4-5.0); Sodium 138 mmol/L (137-145)
== END 2022-07-22 14:11 | disposition home or self-care (01) ==
PROVIDERS: Anesthesiology; PCP Family Medicine; Visit Provider Surgery
DX: K40.90 Unilateral inguinal hernia, without obstruction or gangrene, not specified as recurrent (principal); E11.9 Type 2 diabetes mellitus without complications; Z01.818 Encounter for other preprocedural examination; R94.31 Abnormal electrocardiogram [ECG] [EKG]
CPT/HCPCS: 36415; 80048; 86850; 86900; 86901; 93005

== ENCOUNTER 2022-07-27 01:21 | Day surgery (SDC) | payer OTHER, SELFPAY ==
[2022-07-20 10:30] VITALS: BMI 30.5
--- NOTE | 2022-07-20 10:35 | PC.NURSE ---
Report to the Outpatient Waiting Room, entrance under the green pavilion located off [facility], at time 8:30 on date 07/27/22. Planned Procedure Time: 10:30. Time changes happen often and if your time is changed the preop area will call you the afternoon before. - You and your visitor will be asked to self-screen and do not enter if you have any COVID symptoms. - Only one visitor is requested with a max of two and NO children visitors are allowed at this time. - The patient visitor may be requested to leave or wait in car when not with patient due to distancing restrictions. - A mask is optional within the hospital at this time. Patients may have clear liquids (water, carbonated beverages, clear teas, apple juice) until 3 hours prior to surgery (7:30) with a maximum of 20 ounces. - No food from midnight until time of surgery Take the following medications with a SIP of water the morning of surgery: NONE DO NOT STOP ANY OF YOUR OTHER PRESCRIPTION MEDICATIONS PRIOR TO SURGERY EXCEPT THE FOLLOWING Medications to discontinue per physician: N/A Date to take last dose: N/A Please no make-up, nail nepali, hairspray, perfume, deodorant, or body powder the day of surgery. No jewelry (including any body piercings) or valuables the day of surgery, leave them at home. Please take a shower or bath the night before, or the morning of, surgery with an antibacterial soap (HIBICLENS). Wear comfortable, loose fitting clothing. Children are encouraged to wear pajamas. - Jewelry must be removed prior to entering the operating room. Rings and piercings that are not removed may be cut off. - The hospital will not accept responsibility for valuables. - Please leave all valuables, including medications, at home the day of surgery. If you are going home after surgery, a licensed car pick up driver must drive you home. - NO public transportation without another adult if you receive anesthesia. - We recommend that an adult stay with you for 24 hours following discharge. - We also recommend that you do not drive, make important decision, drink alcoholic beverages, or take any drugs that were not prescribed by your health care provider for at least 24 hours after your discharge time. Follow any additional instructions given to you from your surgeon. If you or anyone in your household have experienced Covid symptoms in the past week, please notify your surgeon or the nurse liaison at the phone number below for possible testing. Telephone instructions given to DAUGHTER - ESSENCE and asked if any additional questions and then verbalized understanding. Patient advised to call surgeon office or pre surgery nurse liaison [phone] if any additional questions.
--- NOTE | 2022-07-22 15:07 | PC.NURSE ---
1500 PATIENT TO PAT OFFICE FOR CONSENT SIGNING VIA CEMENT CONVEYOR OPERATOR DENI SOLOMON, #[id number]. SURGICAL CONSENT AND BLOOD CONSENT SIGNED WITHOUT DIFFICULTY. ALL PRE-OP INSTRUCTIONS REVIEWED WITHOUT DIFFICULTY, PT RELAYS UNDERSTANDING. WILL HAVE PRE-OP TESTING DONE PRIOR TO LEAVING TODAY. DORITA SÁNCHEZ RN
[2022-07-27] VITALS (7 sets, daily range): BP systolic 97–133; BP diastolic 61–87; PULSE 60–84; RESP 13–19; TEMP 36.8; O2SAT 97–100
[2022-07-27] MEDS: KETOROLAC 15 MG/ML VIAL (*BKC) IV PUSH (08:45)
[2022-07-27] MEDS: LACTATED RINGERS 1,000 ML 30 ML IV CONT ×3 (08:45→11:11)
[2022-07-27 09:00] LABS: Glucose Point of Care 151 mg/dl (65-105)
[2022-07-27] MEDS: ACETAMINOPHEN 500 MG TABLET 1000 MG PO (09:13)
--- NOTE | 2022-07-27 09:17 | WPDANESEPPF ---
Anes - Initial Pre Proc Eval Procedure: Operation Date: 07/27/22 10:30 Proposed Procedures p Laparascopic Right Inguinal Hernia Repair with Mesh, Davinci Assisted - Barrett Moore DO Date/Time: 07/27/22 09:17 Surgeon: Barrett Moore DO Pre Op Diagnosis: right inguinal hernia Patient Data Age: 57 Gender: M Height: 1.7 m Weight: 85.1 kg Last Vital Signs Temp 36.8 C 07/27/22 09:00 Pulse 60 07/27/22 09:00 Resp 16 07/27/22 09:00 BP 133/85 07/27/22 09:00 Pulse Ox 97 07/27/22 09:00 O2 Del Method Room Air 07/27/22 09:00 Allergies Allergy/AdvReac Type Severity Reaction Status Date / Time No Known Allergies Allergy Verified 07/27/22 09:08 Home Medications Medication Instructions Recorded Confirmed Type fluticasone propionate 50 1 - 2 spray intranasal BID #16 mL 06/21/22 07/20/22 Rx mcg/actuation nasal spray,suspension (Flonase Allergy Relief) atorvastatin 10 mg tablet 10 mg PO .QD #90 tabs 06/24/22 07/20/22 Rx glimepiride 4 mg tablet 4 mg PO QAM #90 tabs 06/24/22 07/20/22 Rx metformin 850 mg tablet 850 mg PO BID #180 tabs 06/24/22 07/20/22 Rx Laboratory Tests 07/27/22 08:52 POC Capillary Glucose 151 mg/dl H mg/dl (65-105) Patient hx anesthesia problems: none Family hx anesthesia problems: none Results Review: All pre-operative results and documents have been reviewed as part of the pre-operative evaluation. [facility] Past Medical History Medical History Arm fracture BMI 29.0-29.9,adult Colon cancer screening COVID-19 Diabetes Hepatic abscess History of drainage of abscess History of drainage of abscess HLD (hyperlipidemia) Liver cyst Overweight with body mass index (BMI) of 28 to 28.9 in adult (Unknown) RLQ abdominal pain Surgical History Surgical History History of tonsillectomy Family History Family History Father No problems noted. Mother No problems noted. Sibling No problems noted. Other Diabetes mellitus Social History Social History Smoking packs per day: 0.5 Smoking cigarettes per day: 10.0 Years smoked: 25 Smoking pack-years: 12.50 Smoking status: Current every day smoker Tobacco type: cigarettes Second hand tobacco smoke exposure: No Alcohol intake: current Drinks per week: 14 Alcohol use details: 2/DAY Substance use: never Substance use type: does not use Lack of Transportation: YES Lack of Food: Sometimes True Current Housing: I Have Housing Concerned About Future Housing: YES Difficulty Paying Gas/Electric Bills: YES Difficulty Paying for Meds: YES Currently Unemployed: YES Education: Trade/Vocational Certificate Difficulty w/ Childcare or Family Care: No Living arrangements: with family Additional living arrangements comments: AND SON Occupation/Education: unemployed Gender identity (if verbalized by the patient): Male Sexual Orientation (if Verbalized by the Patient): Straight or Heterosexual Spiritual care concerns: No Anes - Eval Final PreProcedure Day of Procedure 07/27/22 09:17 Patient weight: obese Heart: regular rate and rhythm Lungs: clear to auscultation Airway: Mallampati scale class II Neurological: alert and oriented Last oral intake: >/= 8 hours ASA classification: III Emergent: no Anesthetic plan: proceed Anesthesia type and monitoring: general ETT and standard monitoring Results Review: All pre-operative results and documents have been reviewed as part of the pre-operative evaluation. Informed Consent: The patient's anesthetic plan and its attendant risks and benefits were discussed with the patient/family/POA. Questions were solicited and answers provided to the sati
--- NOTE | 2022-07-27 09:39 | WPDHPUPDATE1 ---
History and Physical Update Update Date/Time: 07/27/22 09:39 History and Physical has been reviewed, including an updated exam of the patient. There are NO changes in the patient's condition. Risks, benefits, and alternatives have been discussed and questions answered. Patient agrees to proceed with procedure.
[2022-07-27] MEDS: ceFAZolin 2 GM/D5W 50 ML 2 GM/50 ML BAG IVPB (10:05)
[2022-07-27] MEDS: BUPIVACAINE/EPINEPHRINE 0.25% 50 ML VIAL 30 ML INFILTRATE (10:31)
--- NOTE | 2022-07-27 11:05 | W.PM.PROC2 ---
Procedure Note - Detailed Date of Procedure 07/27/22 Pre-op Diagnosis right inguinal hernia Post-op Diagnosis Same ([facility]) Procedure Performed Laparoscopic right inguinal hernia repair with mesh, da Summer assisted Surgeon Barrett Moore, Anesthesia General and Local (0.5% bupivacaine with epinephrine) Indications This is a 57-year-old man who presented with occasional right lower quadrant abdominal pain. He described the pain as more of a pain in the right lower abdomen at night when lying flat. He did notice a bulge in the right groin. He does not have much pain in that region. He had a CT of his abdomen and pelvis performed which showed evidence of a moderate sized right inguinal hernia containing fat. He also has a prior history of liver abscess but follow-up imaging did not show any further signs of liver abscess or other abnormalities. Discussions were made with the patient about treatment options and decision was made to proceed with robotic assisted laparoscopic right inguinal hernia repair with mesh. Findings Laparoscopic right inguinal hernia repair was performed. Patient was found to have a moderate-sized direct right inguinal hernia. There was no evidence of a left inguinal hernia. A robotic transabdominal preperitoneal approach was utilized. Once a wide enough preperitoneal pocket was created and the hernia sac was reduced, then placed a large right Bard 3DMax mid mesh overlying the entire right myopectineal orifice. No specimens were obtained for pathology. Description of Procedure Procedure as well as risks, benefits, and alternatives were discussed with the patient. Written consent was obtained and placed in chart prior to procedure. Patient was brought back to surgical suite. He was placed supine on operating table. Time-out was done to confirm patient and procedure. He was then intubated by Anesthesia Department. His abdomen was prepped and draped in sterile fashion using chlorhexidine prep. 0.5% bupivacaine with epinephrine was infiltrated at each location for incision. An 8 mm incision was made in the left lateral abdomen, and a 5 mm Optiview trocar was advanced through the abdominal layers under direct visualization. Once inside the abdominal cavity, carbon dioxide insufflation was used to create a pneumoperitoneum. A camera was inserted and the abdominal cavity was inspected. The patient was placed in slight Trendelenburg position. An 8 millimeter incision was made on the right lateral abdomen and an 8 millimeter trocar was inserted under direct visualization. Another 8 millimeter incision was made just superior to the umbilicus and an 8 millimeter trocar was inserted under direct visualization. The 5 mm port was then removed and this was replaced with another 8 mm robotic port. The robotic arms were brought up to the patient's bedside and secured to the ports. The camera and instruments were inserted. I then moved over to the robotic console and took control of the camera and instruments. After careful inspection of the abdominal cavity, I began scoring the peritoneum along the right lower quadrant using scissors with electrocautery. The preperitoneal plane was entered and this was carefully dissected caudally along the inferior epigastric vessels. Careful dissection with scissors with electrocautery and blunt dissection was used to continue this dissection. I dissected far enough laterally to allow for mesh placement, and also dissected medially to identify the pubic arch and Rojelio's ligament. The hernia sac was identified and carefully dissected posteriorly. The cord contents were also identified and the peritoneum was carefully dissected far enough posteriorly to allow for mesh placement. Once an adequate pocket was created, I then placed the mesh within the preperitoneal pocket and carefully unfolded it. The mesh was centered on the hernia defect with adequate overlap circumferentially. The inferior edge o
[2022-07-27 11:32] LABS: Glucose Point of Care 137 mg/dl (65-105)
--- NOTE | 2022-07-27 11:40 | SUR.PHASEI ---
1140 - [facility] 137 at ll30. ice pack to abd.
== END 2022-07-27 13:01 | disposition home or self-care (01) ==
PROVIDERS: PCP Family Medicine; Visit Provider Surgery
PROC: 8E0Y4CZ Robotic Assisted Procedure of Lower Extremity, Percutaneous Endoscopic Approach (ICD-10-PCS; CPT 49650; principal; 2022-07-27 10:30)
DX: K40.90 Unilateral inguinal hernia, without obstruction or gangrene, not specified as recurrent (principal); E11.9 Type 2 diabetes mellitus without complications; E78.5 Hyperlipidemia, unspecified; F17.210 Nicotine dependence, cigarettes, uncomplicated
CPT/HCPCS: 49650; S2900; 82948; A9270; C1781; J0690; J1100; J1170; J1885; J2250; J2405; J2704; J3010; J7120

== ENCOUNTER 2022-07-28 07:53 | Emergency (ER) | payer OTHER, SELFPAY ==
[2022-07-28 08:03] VITALS: BP 140/86; PULSE 53; RESP 19; TEMP 36.3; O2SAT 99
--- NOTE | 2022-07-28 09:23 | ED.GENADULT ---
HPI - General Adult General Chief complaint: Unspecified Stated complaint: surgery yesterday for hernia and wound bleeding Time Seen by Provider: 07/28/22 08:00 History of Present Illness HPI narrative: Patient is a 57-year-old male who presents ER with reports of complications from a surgery yesterday. He had laparoscopic hernia surgery performed. He woke up and had dried blood on his shirt in it. A port site on the left side dehisced slightly. No fevers or chills or sweats. No additional concerns. Related Data Allergies Allergy/AdvReac Type Severity Reaction Status Date / Time No Known Allergies Allergy Verified 07/28/22 08:06 Review of Systems Gastrointestinal: Gastrointestinal: Denies abdominal pain, Denies nausea and Denies vomiting Integumentary/Breasts: Skin/Breast: Denies pruritus, Denies rash and Denies skin ulcer Comments: Wound dehiscence PMFSH Past Medical History Medical History Arm fracture BMI 29.0-29.9,adult Colon cancer screening COVID-19 Diabetes Hepatic abscess History of drainage of abscess History of drainage of abscess HLD (hyperlipidemia) Liver cyst Overweight with body mass index (BMI) of 28 to 28.9 in adult (Unknown) RLQ abdominal pain Surgical History Surgical History History of tonsillectomy Family History Family History Father No problems noted. Mother No problems noted. Sibling No problems noted. Other Diabetes mellitus Social History Social History Smoking packs per day: 0.5 Smoking cigarettes per day: 10.0 Years smoked: 25 Smoking pack-years: 12.50 Smoking status: Current every day smoker Tobacco type: cigarettes Second hand tobacco smoke exposure: No Alcohol intake: current Drinks per week: 14 Alcohol use details: 2/DAY Substance use: never Substance use type: does not use Lack of Transportation: YES Lack of Food: Sometimes True Current Housing: I Have Housing Concerned About Future Housing: YES Difficulty Paying Gas/Electric Bills: YES Difficulty Paying for Meds: YES Currently Unemployed: YES Education: Trade/Vocational Certificate Difficulty w/ Childcare or Family Care: No Living arrangements: with family Additional living arrangements comments: AND SON Occupation/Education: unemployed Gender identity (if verbalized by the patient): Male Sexual Orientation (if Verbalized by the Patient): Straight or Heterosexual Spiritual care concerns: No Exam Narrative: GENERAL: Well-appearing, well-nourished, and in no acute distress. HEAD: Normocephalic, atraumatic. CHEST: Clear to auscultation. No respiratory distress. HEART: Regular rate and rhythm. Normal peripheral pulses. ABDOMEN: Soft, nontender, nondistended. EXTREMITIES: Normal range of motion. No edema. SKIN: Warm, dry, no rash. Very slight wound dehiscence left upper trocar site. No active bleeding. NEURO:Alert and oriented x3. PSYCH: Normal mood and affect. Course Course Emergency Course: Discussed case with Dr. Moore. Recommends bandaging the area with 4 x 4's. Patient can be discharged home. Patient aware of diagnosis and treatment plan. Vital Signs Vital signs: Vital Signs Temperature 97.4 F L 07/28/22 08:03 Pulse Rate 53 L 07/28/22 08:03 Respiratory Rate 19 07/28/22 08:03 Blood Pressure 140/86 07/28/22 08:03 Pulse Oximetry 99 07/28/22 08:03 Oxygen Delivery Room Air 07/28/22 08:03 Temperature 97.4 F L 07/28/22 08:03 Pulse Rate 53 L 07/28/22 08:03 Respiratory Rate 19 07/28/22 08:03 Blood Pressure 140/86 07/28/22 08:03 Pulse Oximetry 99 07/28/22 08:03 Oxygen Delivery Room Air 07/28/22 08:03 Medical Decision Making Vital Signs Vital
== END 2022-07-28 09:32 | disposition home or self-care (01) ==
PROVIDERS: Emergency Provider Emergency Medicine; PCP Family Medicine
DX: T81.31XA Disruption of external operation (surgical) wound, not elsewhere classified, initial encounter (principal); E11.9 Type 2 diabetes mellitus without complications; E78.5 Hyperlipidemia, unspecified; F17.210 Nicotine dependence, cigarettes, uncomplicated
CPT/HCPCS: 99282

== ENCOUNTER 2023-12-01 14:17 | Outpatient (CLI) | payer OTHER, SELFPAY | END 2023-12-01 14:18 | disposition home or self-care (01) | LOC: ANHAUDASC 14:18 | PROVIDERS: PCP Family Medicine; Visit Provider Otolaryngology | DX: H93.8X9 Other specified disorders of ear, unspecified ear (principal); H90.3 Sensorineural hearing loss, bilateral | CPT/HCPCS: 92557; 92567 ==

== ENCOUNTER 2024-04-02 12:53 | Outpatient (CLI) | payer OTHER, SELFPAY | END 2024-04-02 12:54 | disposition home or self-care (01) | LOC: ANHAUDASC 12:54 | PROVIDERS: PCP Family Medicine; Visit Provider Physician Assistant Medical | DX: H90.3 Sensorineural hearing loss, bilateral (principal) | CPT/HCPCS: 92557; 92567 ==

== ENCOUNTER 2024-06-07 15:00 | Outpatient (RCR) | payer SELFPAY | END 2024-07-09 23:59 | disposition home or self-care (01) | LOC: ANHAUDASC 15:00 | PROVIDERS: PCP Family Medicine; Visit Provider Physician Assistant Medical | DX: Z46.1 Encounter for fitting and adjustment of hearing aid (principal) | CPT/HCPCS: 99199; V5257 ==